=== PATIENT | female | born 1995 | race African-American/Black ===

== ENCOUNTER 2019-08-23 15:34 | Emergency (ER) | payer SELFPAY ==
[~2019-08-23] VITALS: Ht 165.1 cm; Wt 80.0 kg
[2019-08-23] MEDS ORDERED: MAGNESIUM/ALUMINUM HYDROXIDE/SIMETHICONE 30ML UDC PO STA (16:12)
[2019-08-23] MEDS ORDERED: VISCOUS LIDOCAINE 2% 15 ML UDC PO STA (16:12)
[2019-08-23 17:14] VITALS: BP 128/79
== END 2019-08-23 18:04 | disposition home or self-care (01) ==
LOC: ER 15:34
DX: J02.9 Acute pharyngitis, unspecified (principal); R09.89 Other specified symptoms and signs involving the circulatory and respiratory systems
CPT/HCPCS: 70360; 99283

== ENCOUNTER 2022-06-01 19:15 | Emergency (ER) | payer SELFPAY ==
[~2022-06-01] VITALS: Ht 165.1 cm; Wt 95.0 kg
[2022-06-01 19:24] VITALS: BP 115/67
[2022-06-01] MEDS ORDERED: SODIUM CHLORIDE 0.9% 1,000 ML IV ONE (23:30)
[2022-06-01 23:49] LABS: BASOPHILS % 0.5 % (0.0-2.0); EOSINOPHILS % 1.8 % (0.0-5.0); HEMATOCRIT. 37.5 % (36.0-48.0); HEMOGLOBIN. 12.6 g/dL (12.0-16.0); LYMPHOCYTES % 64.8 % (20.0-50.0); MEAN CORPUSCULAR HEMOGLOBIN 33.5 pg (28.0-32.0); MEAN CORPUSCULAR VOLUME 99.7 fL (81.0-99.0); MONOCYTES % 6.3 % (2.0-8.0); NEUTROPHILS % 26.6 % (40.0-76.0); PLATELET 311 x1000/uL (130-400); RED BLOOD CELL COUNT 3.76 mill/uL (4.2-5.4)
[2022-06-01 23:59] LABS: CHLORIDE 108 mEq/L (98-107)
[2022-06-02 00:02] LABS: HCG SCREEN NEGATIVE
[2022-06-02] MEDS ORDERED: IOHEXOL-300 100 ML BOTTLE ONE (01:36)
[2022-06-02 01:51] LABS: CLARITY URINE CLEAR (CLEAR); COLOR URINE YELLOW (YELLOW); KETONES URINE NEGATIVE (NEGATIVE); LEUKOCYTE ESTERASE URINE NEGATIVE (NEGATIVE); NITRITE URINE NEGATIVE (NEGATIVE); OCCULT BLOOD URINE NEGATIVE (NEGATIVE); PH URINE 6.5 (4.5-8.0); PROTEIN URINE NEGATIVE (NEGATIVE); SPECIFIC GRAVITY URINE 1.022 (1.005-1.030)
== END 2022-06-02 02:54 | disposition home or self-care (01) ==
LOC: ER 19:15
DX: R10.32 Left lower quadrant pain (principal); N64.4 Mastodynia
CPT/HCPCS: 36415; 74177; 80053; 81003; 83690; 84703; 85025; 96360; 99285; J7030; Q9967

== ENCOUNTER 2023-03-07 10:38 | Emergency (ER) | payer MEDICAID ==
[~2023-03-07] VITALS: Ht 165.1 cm; Wt 105.0 kg
[2023-03-07 10:56] VITALS: BP 110/63
[2023-03-07] MEDS ORDERED: CEPH500C2 MT (11:22)
[2023-03-07] MEDS ORDERED: IBUP-2029 MT (11:22)
== END 2023-03-07 11:54 | disposition home or self-care (01) ==
LOC: ER 10:38
DX: L73.9 Follicular disorder, unspecified (principal)
CPT/HCPCS: 99283

== ENCOUNTER 2023-03-10 08:36 | Emergency (ER) | payer MEDICAID ==
[~2023-03-10] VITALS: Ht 165.1 cm; Wt 100.0 kg
[~2023-03-10 08:36] MED LIST: CEPH500C2 MT; IBUP-2029 MT
[2023-03-10] MEDS ORDERED: LIDOCAINE HCL/PF 1% 10 MG/ML 5ML VIAL INFIL ONE (09:30)
[2023-03-10] MEDS ORDERED: MORPHINE SULFATE 10 MG/ML CPJ IM ONE (10:30)
[2023-03-10] MEDS ORDERED: T3 PO (11:17)
[2023-03-10] MEDS ORDERED: HYDROCODONE/ACETAMINOPHEN 5/325MG TABLET PO ONE (11:30)
[2023-03-10 11:42] VITALS: BP 112/67
== END 2023-03-10 11:44 | disposition home or self-care (01) ==
LOC: ER 08:36
DX: L02.415 Cutaneous abscess of right lower limb (principal)
CPT/HCPCS: 10060; 96372; 99283; J2270; J3490; Z7610

== ENCOUNTER 2023-03-12 08:35 | Emergency (ER) | payer MEDICAID ==
[~2023-03-12] VITALS: Ht 165.1 cm; Wt 100.0 kg
[2023-03-12 08:46] VITALS: BP 116/55
[2023-03-12] MEDS ORDERED: CEPH500C2 MT (10:55)
[2023-03-12] MEDS ORDERED: SULF1TAB48 MT (10:55)
== END 2023-03-12 11:09 | disposition home or self-care (01) ==
LOC: ER 08:35
DX: L73.9 Follicular disorder, unspecified (principal)
CPT/HCPCS: 99281